=== PATIENT | female | born 1995 | race African-American/Black ===

== ENCOUNTER 2019-03-13 00:38 | Inpatient (IN) | payer MEDICAID ==
[~2019-03-13] VITALS: Ht 175.3 cm; Wt 103.9 kg
[2019-03-13] MEDS ORDERED: PREN1TAB78 MT (01:50)
[2019-03-13] MEDS ORDERED: FERR-71 MT (01:50)
[2019-03-13] MEDS ORDERED: DEXT 5%/LR + PITOCIN 20UNITS/L 1,000 ML IV SCH ×2 (01:50→19:06)
[2019-03-13] MEDS ORDERED: BUTORPHANOL TARTRATE 2 MG/ML VIAL IV PRN (02:00)
[2019-03-13] MEDS ORDERED: NALOXONE HCL 0.4 MG/ML 1ML VIAL IM PRN (02:00)
[2019-03-13] MEDS ORDERED: METHYLERGONOVINE MALEATE 0.2 MG/ML IM PRN (02:00)
[2019-03-13] MEDS ORDERED: LIDOCAINE HCL 1% 20ML VIAL (Pyxis) INJ INFIL SCH (02:00)
[2019-03-13] MEDS: LACTATED RINGERS 1,000 ML IV SCH ×4 (02:20→20:40)
[2019-03-13] MEDS ORDERED: AMPICILLIN 2,000 MG in SODIUM CHLORIDE 0.9% 100 ML IV SCH (03:00)
[2019-03-13 03:10] LABS: BASOPHILS % 0.5 % (0.0-2.0); EOSINOPHILS % 0.4 % (0.0-5.0); HEMATOCRIT. 28.1 % (36.0-48.0); LYMPHOCYTES % 12.6 % (20.0-50.0); MEAN CORPUSCULAR HEMOGLOBIN 25.1 pg (28.0-32.0); MEAN CORPUSCULAR VOLUME 78.9 fL (81.0-99.0); MEAN PLATELET VOLUME 11.1 fl (7.4-10.4); MONOCYTES % 5.6 % (2.0-8.0); NEUTROPHILS % 80.9 % (40.0-76.0); PLATELET 89 x1000/uL (130-400); RED BLOOD CELL COUNT 3.57 mill/uL (4.2-5.4); RED CELL DISTRIBUTION WIDTH 19.4 % (11.6-14.6)
[2019-03-13 03:22] LABS: CLARITY URINE CLOUDY (CLEAR); COLOR URINE DARK YELLOW (YELLOW); KETONES URINE 3+ (NEGATIVE); LEUKOCYTE ESTERASE URINE 1+ (NEGATIVE); NITRITE URINE NEGATIVE (NEGATIVE); OCCULT BLOOD URINE NEGATIVE (NEGATIVE); PH URINE 6.5 (4.5-8.0); PROTEIN URINE 1+ (NEGATIVE); SPECIFIC GRAVITY URINE 1.035 (1.005-1.030)
[2019-03-13 03:24] LABS: INR 0.9; PARTIAL THROMBOPLASTIN TIME 29.8 sec (23.4-31.0); PROTHROMBIN TIME 9.8 sec (9.6-11.0)
[2019-03-13] MEDS: MISOPROSTOL 100MCG TABLET VG PRN ×4 (03:25→15:20)
[2019-03-13 03:31] LABS: *AMPHETAMINES SCREEN URINE NEGATIVE (NEGATIVE); *BARBITURATES SCREEN URINE NEGATIVE (NEGATIVE); *BENZODIAZEPINES SCREEN URINE NEGATIVE (NEGATIVE); *COCAINE SCREEN URINE NEGATIVE (NEGATIVE); METHADONE URINE SCREEN NEGATIVE (NEGATIVE)
[2019-03-13 03:32] LABS: CANNABINOID URINE SCREEN NEGATIVE (NEGATIVE); OPIATES URINE SCREEN NEGATIVE (NEGATIVE); PHENCYCLIDINE URINE SCREEN NEGATIVE (NEGATIVE)
[2019-03-13 04:32] LABS: HEPATITIS B SURFACE ANTIGEN NEGATIVE
[2019-03-13] MEDS ORDERED: AMPICILLIN 1,000 MG in SODIUM CHLORIDE 0.9% 50 ML IV SCH (09:00)
[2019-03-13] MEDS ORDERED: INFLUENZA VIRUS VACCINE(AFLURIA) 0.5ML SYR IM ONE (10:00)
[2019-03-13 10:22] LABS: BASOPHILS % 0.4 % (0.0-2.0); EOSINOPHILS % 0.5 % (0.0-5.0); HEMATOCRIT. 28.5 % (36.0-48.0); HEMOGLOBIN. 9.1 g/dL (12.0-16.0); LYMPHOCYTES % 9.8 % (20.0-50.0); MEAN CORPUSCULAR HEMOGLOBIN 24.8 pg (28.0-32.0); MEAN CORPUSCULAR VOLUME 77.6 fL (81.0-99.0); NEUTROPHILS % 83.3 % (40.0-76.0); RED BLOOD CELL COUNT 3.67 mill/uL (4.2-5.4); RED CELL DISTRIBUTION WIDTH 19.2 % (11.6-14.6)
[2019-03-13 10:56] LABS: MEAN PLATELET VOLUME 10.2 fl (7.4-10.4); PLATELET 81 x1000/uL (130-400)
[2019-03-13 17:12] LABS: BASOPHILS % 0.5 % (0.0-2.0); EOSINOPHILS % 0.1 % (0.0-5.0); HEMATOCRIT. 29.5 % (36.0-48.0); HEMOGLOBIN. 9.3 g/dL (12.0-16.0); LYMPHOCYTES % 12.4 % (20.0-50.0); MEAN CORPUSCULAR HEMOGLOBIN 24.8 pg (28.0-32.0); MEAN CORPUSCULAR VOLUME 78.6 fL (81.0-99.0); MEAN PLATELET VOLUME 10.1 fl (7.4-10.4); MONOCYTES % 7.9 % (2.0-8.0); NEUTROPHILS % 79.1 % (40.0-76.0); PLATELET 71 x1000/uL (130-400); RED BLOOD CELL COUNT 3.75 mill/uL (4.2-5.4); RED CELL DISTRIBUTION WIDTH 19.2 % (11.6-14.6)
[2019-03-13] MEDS ORDERED: OXYTOCIN 10 UNITS/ML 1ML ONE ×2 (17:52→18:32)
[2019-03-13] MEDS ORDERED: CEFAZOLIN SODIUM 1000MG/VIAL ONE (17:52)
[2019-03-13] MEDS ORDERED: PHENYLEPHRINE HCL 10 MG/ML 1ML (IV VIAL) IV ONE (17:53)
[2019-03-13] MEDS ORDERED: SUCCINYLCHOLINE CHLORIDE 200MG/10ML IV ONE (17:53)
[2019-03-13] MEDS ORDERED: LIDOCAINE HCL/PF 2% 20MG/ML 5 ML/VIAL ONE (17:53)
[2019-03-13] MEDS ORDERED: SODIUM CHLORIDE 0.9% 10ML VIAL ONE ×2 (17:53→17:57)
[2019-03-13] MEDS ORDERED: ROCURONIUM BROMIDE 10MG/ML VIAL 5ML IV ONE (17:54)
[2019-03-13] MEDS ORDERED: FENTANYL CITRATE/PF 50MCG/ML 2ML VIAL ONE (18:20)
[2019-03-13] MEDS ORDERED: HYDROMORPHONE HCL/PF 2MG/ML (OR) ONE (18:23)
[2019-03-13] MEDS ORDERED: IBUPROFEN 400MG TABLET PO PRN (19:15)
[2019-03-13] MEDS ORDERED: ONDANSETRON HCL 4MG/2ML INJ IM PRN (19:15)
[2019-03-13] MEDS ORDERED: HYDROCODONE/ACETAMINOPHEN 5/325MG TABLET PO PRN (19:15)
[2019-03-13] MEDS ORDERED: RHO(D) IMMUNE GLOBULIN 300 MCG/SYR IM PRN (19:15)
[2019-03-13] MEDS ORDERED: NALOXONE HCL 0.4 MG/ML 1ML VIAL IV PRN (19:15)
[2019-03-13] MEDS ORDERED: DIPHENHYDRAMINE 50MG/ML VIAL IM PRN (19:15)
[2019-03-13] MEDS ORDERED: BISACODYL 10MG SUPP PR PRN (19:15)
[2019-03-13] MEDS ORDERED: HYDROMORPHONE HCL/PF 2MG/ML CPJ IM PRN (19:15)
[2019-03-13 20:46] LABS: HEMATOCRIT. 27.8 % (36.0-48.0); HEMOGLOBIN. 8.6 g/dL (12.0-16.0); MEAN CORPUSCULAR HEMOGLOBIN 24.5 pg (28.0-32.0); MEAN CORPUSCULAR VOLUME 79.4 fL (81.0-99.0); MEAN PLATELET VOLUME 11.8 fl (7.4-10.4); PLATELET 84 x1000/uL (130-400); RED BLOOD CELL COUNT 3.49 mill/uL (4.2-5.4)
[2019-03-13 21:04] LABS: PLATELET ESTIMATE DECREASED
[2019-03-13] MEDS: HYDROMORPHONE HCL/PF 2MG/ML CPJ IV PRN (21:06)
[2019-03-13 21:26] VITALS: BP 102/57
[2019-03-13 22:00] VITALS: BP 114/66
[2019-03-13 22:30] VITALS: BP 98/59
[2019-03-14 02:26] VITALS: BP 105/69
[2019-03-14] MEDS: HYDROMORPHONE HCL/PF 2MG/ML CPJ IV PRN ×2 (05:19→08:49)
[2019-03-14 06:43] VITALS: BP 116/47
[2019-03-14 07:25] LABS: BASOPHILS % 0.4 % (0.0-2.0); HEMATOCRIT. 22.7 % (36.0-48.0); HEMOGLOBIN. 7.3 g/dL (12.0-16.0); LYMPHOCYTES % 8.2 % (20.0-50.0); MEAN CORPUSCULAR HEMOGLOBIN 25.4 pg (28.0-32.0); MEAN CORPUSCULAR VOLUME 78.6 fL (81.0-99.0); MEAN PLATELET VOLUME 10.8 fl (7.4-10.4); MONOCYTES % 8.3 % (2.0-8.0); NEUTROPHILS % 83.1 % (40.0-76.0); PLATELET 72 x1000/uL (130-400); RED BLOOD CELL COUNT 2.89 mill/uL (4.2-5.4); RED CELL DISTRIBUTION WIDTH 19.4 % (11.6-14.6)
[2019-03-14 08:00] VITALS: BP 104/47
[2019-03-14] MEDS: FERROUS SULFATE 325MG TABLET PO SCH ×3 (08:48→17:25)
[2019-03-14] MEDS: HYDROCODONE/ACETAMINOPHEN 10/325MG TABLET PO PRN ×2 (13:05→18:18)
[2019-03-14 15:55] VITALS: BP 101/57
[2019-03-14 19:05] VITALS: BP 111/63
[2019-03-14] MEDS ORDERED: TETANUS, DIPHTHERIA, PERTUSSIS VAC/PF 0.5ML (>7YR OLD) IM ONE (21:00)
[2019-03-14 23:06] VITALS: BP 111/72
[2019-03-14] MEDS: IBUPROFEN 800MG TABLET PO PRN (23:06)
[2019-03-15 08:00] VITALS: BP 106/63
[2019-03-15] MEDS ORDERED: INFLUENZA VIRUS VACCINE(AFLURIA) 0.5ML SYR IM ONE (08:00)
[2019-03-15] MEDS: FERROUS SULFATE 325MG TABLET PO SCH ×3 (08:28→17:13)
[2019-03-15] MEDS: IBUPROFEN 800MG TABLET PO PRN ×2 (08:28→17:12)
[2019-03-15 15:34] LABS: BASOPHILS % 0.6 % (0.0-2.0); EOSINOPHILS % 0.4 % (0.0-5.0); HEMOGLOBIN. 8.3 g/dL (12.0-16.0); LYMPHOCYTES % 10.1 % (20.0-50.0); MEAN CORPUSCULAR HEMOGLOBIN 24.8 pg (28.0-32.0); MEAN CORPUSCULAR VOLUME 80.6 fL (81.0-99.0); MEAN PLATELET VOLUME 11.6 fl (7.4-10.4); MONOCYTES % 6.1 % (2.0-8.0); NEUTROPHILS % 82.8 % (40.0-76.0); PLATELET 94 x1000/uL (130-400); RED BLOOD CELL COUNT 3.35 mill/uL (4.2-5.4); RED CELL DISTRIBUTION WIDTH 18.5 % (11.6-14.6)
[2019-03-15 16:00] VITALS: BP 101/60
[2019-03-15 19:45] VITALS: BP 107/62
[2019-03-16 04:10] VITALS: BP 101/62
[2019-03-16] MEDS: IBUPROFEN 800MG TABLET PO PRN (04:13)
[2019-03-16 07:54] LABS: BASOPHILS % 0.5 % (0.0-2.0); EOSINOPHILS % 1.6 % (0.0-5.0); HEMATOCRIT. 22.8 % (36.0-48.0); HEMOGLOBIN. 7.2 g/dL (12.0-16.0); LYMPHOCYTES % 13.6 % (20.0-50.0); MEAN CORPUSCULAR HEMOGLOBIN 25.2 pg (28.0-32.0); MEAN CORPUSCULAR VOLUME 79.6 fL (81.0-99.0); MEAN PLATELET VOLUME 11.2 fl (7.4-10.4); MONOCYTES % 7.3 % (2.0-8.0); PLATELET 86 x1000/uL (130-400); RED BLOOD CELL COUNT 2.87 mill/uL (4.2-5.4); RED CELL DISTRIBUTION WIDTH 18.6 % (11.6-14.6)
[2019-03-16 09:00] VITALS: BP 106/53
== END 2019-03-16 12:00 | disposition home or self-care (01) | DRG 540 ==
LOC: 8 EST LDRP 00:38 → OBSVTOIN 00:38 → 8EST 21:20
PROVIDERS: ADMIT Obstetrics & Gynecology; ATTEND Obstetrics & Gynecology
PROC: 10D00Z1 Extraction of Products of Conception, Low, Open Approach (ICD-10-PCS; principal; 2019-03-13)
DX: O99.12 Other diseases of the blood and blood-forming organs and certain disorders involving the immune mechanism complicating childbirth (principal); D69.6 Thrombocytopenia, unspecified; D62 Acute posthemorrhagic anemia; Z37.0 Single live birth; O48.0 Post-term pregnancy; Z3A.41 41 weeks gestation of pregnancy; O90.81 Anemia of the puerperium; Z81.8 Family history of other mental and behavioral disorders
CPT/HCPCS: 36415; 80305; 81003; 86592; 86703; 86762; 86850; 86900; 86920; 87340; 88307; 90686; 90715; J0290; J0330; J0690; J1170; J2370; J3010; J3490; J7050; J7120